=== PATIENT | male | born 1950 | race Hispanic/Latino ===

== ENCOUNTER → 2024-11-25 | Outpatient (CLI) | payer OTHER | END | disposition home or self-care (01) | LOC: SHCH 13:17 | PROVIDERS: ATTEND Internal Medicine Cardiovascular Disease | DX: I08.3 Combined rheumatic disorders of mitral, aortic and tricuspid valves (principal); I87.2 Venous insufficiency (chronic) (peripheral); I87.1 Compression of vein; R60.9 Edema, unspecified; I48.21 Permanent atrial fibrillation; I73.9 Peripheral vascular disease, unspecified | CPT/HCPCS: 93306; 93925; 93970 ==